=== PATIENT | male | born 1995 | race Caucasian/White ===

== ENCOUNTER 2019-11-15 09:38 | Emergency (ER) | payer SELFPAY ==
--- NOTE | 2019-11-15 09:43 | ED.URI ---
HPI - URI/Sore Throat General Chief Complaint: Upper Respiratory Infection Stated Complaint: chest congestion/runny nose/cough Time Seen by Provider: 11/15/19 09:56 Source: patient and RN notes reviewed Mode of arrival: ambulatory Limitations: no limitations History of Present Illness HPI Narrative: 24 old male presents with concern for cough, chest wall soreness when coughing, head congestion, fever, body aches, runny nose, general malaise. Reports has been taking ibuprofen and NyQuil. Reports he was exposed to influenza. Reports symptoms started on Wednesday with sinus congestion, cough started Wednesday. MD elicited complaint: cough Related Data Allergies Allergy/AdvReac Type Severity Reaction Status Date / Time azithromycin Allergy Unknown HIVES Verified 11/15/19 09:45 Cat Dander Allergy Mild Sneezing Uncoded 11/15/19 09:58 Review of Systems Review of Systems: Narrative: CONSTITUTIONAL: Reports malaise, chills, sweats, fever. EYES: Denies visual changes, redness, or discharge. ENT: Reports rhinorrhea, congestion. Denies sinus pain, otalgia and sore throat. CARDIOVASCULAR: Denies chest pain, palpitations, or edema. RESPIRATORY: Reports cough, chest congestion, chest pain with coughing. Denies dyspnea. GASTROINTESTINAL: Denies abdominal pain, nausea, vomiting, diarrhea SKIN: Denies rash or itching. MUSCULOSKELETAL: Reports myalgia. NEUROLOGIC: Reports headache. All systems reviewed & are unremarkable except as noted in HPI and below PMFSH Social History Social History Gender identity (if verbalized by the patient): Male Comments At time of signature, agree with nursing past medical, surgical, social and family history. There is no relevant family history pertinent to the presenting complaint Exam Narrative: Exam Narrative: GENERAL: Well-appearing, well-nourished, and in no acute distress. HEAD: Normocephalic EYES: PERRLA, conjunctivae clear ENT: Nares clear, turbinates edematous and erythematous, clear discharge. Mucous membranes moist. TM pearly medina with sharp light reflex bilaterally; no tragal tenderness. Oropharynx not erythematous without lesions. Tonsils not enlarged and without exudate, no drooling, no hoarseness, no trismus. NECK: Supple. No lymphadenopathy CHEST: Clear to auscultation, breath sounds equal. No wheezing, rhonchi, rales, or stridor. No respiratory distress, speaks in full sentences. Cough noted HEART: Regular rate and rhythm. No murmur heard. Normal peripheral pulses. SKIN: Warm, dry, no rash. NEURO: Alert and oriented x3. PSYCH: Normal mood and affect Course Course Emergency Course: Patient is aware of diagnosis, understands and agrees to treatment plan. Anticipatory guidance given. Patient agrees to follow-up as directed and is aware of reasons to seek care at the emergency department. Portions of this record may have been created with voice recognition software Vital Signs Vital signs: Vital Signs Temperature 99.0 F 11/15/19 09:52 Pulse Rate 109 H 11/15/19 09:52 Respiratory Rate 16 11/15/19 09:52 Blood Pressure 145/73 H 11/15/19 09:52 Pulse Oximetry 98 11/15/19 09:52 Temperature 99.0 F 11/15/19 09:52 Pulse Rate 109 H 11/15/19 09:52 Respiratory Rate 16 11/15/19 09:52 Blood Pressure 145/73 H 11/15/19 09:52 Pulse Oximetry 98 11/15/19 09:52 Reviewed. MDM - URI/Sore Throat MDM Narrative Medical decision making narrative: Differential diagnosis considered: Strep pharyngitis, allergic rhinitis, upper respiratory tract infection, sinusitis, rhinosinusitis, nasopharyngitis. viral pharyngitis, otitis media, otitis externa, pneumonia, bronchitis, viral cough syndrome, viral syndrome, and influenza. Exam findings show no acute concerns or changes; patient is non-toxic appearing and is in no distress. Patient is appropriate for outpatient treatment and follow-up. Lab Data Attestation: I reviewed the patient's lab results. Labs: Influenza A Screen Ne
[2019-11-15 09:52] VITALS: BP 145/73; PULSE 109; RESP 16; TEMP 37.2; O2SAT 98
== END 2019-11-15 10:13 | disposition home or self-care (01) ==
PROVIDERS: Emergency Provider Nurse Practitioner
DX: J10.1 Influenza due to other identified influenza virus with other respiratory manifestations (principal)
CPT/HCPCS: 87804; 99213; G0463

== ENCOUNTER 2021-04-04 23:40 | Emergency (ER) | payer OTHER, SELFPAY ==
--- NOTE | 2021-04-04 23:45 | PC.NURSE ---
Bebeto (friend) wants any updates on pt. [phone]
[2021-04-04 23:53] VITALS: BP 148/90; PULSE 102; RESP 16; TEMP 36.9; O2SAT 97
[2021-04-04 23:59] VITALS: BP 129/92; PULSE 106; RESP 35; O2SAT 94
[2021-04-05 00:02] VITALS: BP 124/74; PULSE 107; RESP 28; O2SAT 93
--- NOTE | 2021-04-05 00:05 | PC.NURSE ---
MARIAELENA Botello from [facility]ison Control notified of ingestion. States peak is 1-4 hours, look for [employer] depression and mild hypotension. Based on kg, pt should be able to tolerate reported ingestion. Po[facility] Control to fax over information on care.
[2021-04-05 00:14] VITALS: RESP 21
[2021-04-05 00:15] VITALS: PULSE 104; RESP 17; O2SAT 95
--- NOTE | 2021-04-05 00:15 | ED.GENADULT ---
HPI - General Adult General Chief complaint: Overdose Stated complaint: needs stomach pumped Time Seen by Provider: 04/05/21 00:02 History of Present Illness HPI narrative: Patient 25-year-old gentleman who presents the emergency department with chief complaint of overdose. Patient reports tonight he was trying to get high and took some benzodiazepines plus alcohol. The patient states he is not suicidal not homicidal and reports that he was brought here because his friend thought he needed his stomach pumped. Patient reports that he is not drowsy reports that he would like to go home now. Related Data Allergies Allergy/AdvReac Type Severity Reaction Status Date / Time azithromycin Allergy Unknown HIVES Verified 11/15/19 09:45 Cat Dander Allergy Mild Sneezing Uncoded 11/15/19 09:58 Review of Systems Review of Systems: Narrative: A 10 system review of systems was completed on the patient and is negative except for what is stated in the HPI. Nursing and ancillary documentation was reviewed. [facility] Social History Social History Substance use type: marijuana Gender identity (if verbalized by the patient): Male Exam Narrative: Exam Narrative: GENERAL: Well-appearing, well-nourished, and in no acute distress. HEAD: Normocephalic, atraumatic. EYES: PERRLA and EOMI. ENT: Nares clear, no rhinorrhea or epistaxis. Mucous membranes moist. NECK: Supple. CHEST: Clear to auscultation. No respiratory distress. HEART: Regular rate and rhythm. No murmur heard. Normal peripheral pulses. ABDOMEN: Soft, nontender, nondistended, normal active bowel sounds. EXTREMITIES: Normal range of motion. No edema. SKIN: Warm, dry, no rash. NEURO: No focal deficits. Alert and oriented x3. PSYCH: Normal mood and affect. Course Vital Signs Vital signs: Vital Signs Temperature 36.9 C 04/04/21 23:53 Pulse Rate 102 H 04/04/21 23:53 Respiratory Rate 16 04/04/21 23:53 Blood Pressure 148/90 H 04/04/21 23:53 Pulse Oximetry 97 04/04/21 23:53 Temperature 36.9 C 04/04/21 23:53 Pulse Rate 69 04/05/21 05:58 Respiratory Rate 16 04/05/21 05:58 Blood Pressure 115/62 04/05/21 05:58 Pulse Oximetry 94 04/05/21 05:58 Medical Decision Making Vital Signs Vital Signs: Vital Signs Temperature 36.9 C 04/04/21 23:53 Pulse Rate 102 H 04/04/21 23:53 Respiratory Rate 16 04/04/21 23:53 Blood Pressure 148/90 H 04/04/21 23:53 Pulse Oximetry 97 04/04/21 23:53 Temperature 36.9 C 04/04/21 23:53 Pulse Rate 69 04/05/21 05:58 Respiratory Rate 16 04/05/21 05:58 Blood Pressure 115/62 04/05/21 05:58 Pulse Oximetry 94 04/05/21 05:58 Lab Data Result diagrams: 04/05/21 01:30 04/05/21 01:30 Labs: Lab Results 04/05/21 04/05/21 04/05/21 Range/Units 01:30 01:30 01:30 WBC 11.2 H (4.5-10.0) K/mm3 RBC 5.33 (4.6-6.20) M/mm3 Hgb 17.0 (14.0-18.0) g/dL Hct 49.3 (42.0-52.0) % MCV 92.5 (80-100) fl MCH 31.9 (26-34) pg MCHC 34.5 (32-36) g/dl RDW 12.7 (11.5-14.5) % Plt Count 195 (150-375) k/mm3 MPV 11.4 H (7.4-10.4) fl Immature Gran % (Auto) 0.6 H (0-0.5) % Neut % (Auto) 65.6 (45.5-73.1) % Lymph % (Auto) 27.9 (18.3-44.2) % [place] % (Auto) 3.9 (2.6-8.5) % Eos % (Auto) 1.3 (0-4.4) % Baso % (Auto) 0.7 (0.2-1.2) % Lymph # (Auto) 3.12 (0.9-3.2) K/mm3 [place] # (Auto) 0.4 (0.1-0.6) K/mm3 Eos # (Auto) 0.1 (0-0.3) K/mm3 Baso # (Auto) 0.1 (0.0-0.1) K/mm3 Abs Immat Gran (auto) 0.07 H (0.00-0.031) K/mm3 Absolute Neuts (auto) 7.3 H (1.3-6.7) K/mm3 Absolute Nucleated RBC 0.0 (0.0-0.012) K/mm3 Nucleated RBC % 0.0 (0.0-0.2) % Sodium (137-145) mmol/L Potassium (3.4-5.0) mmol/L Chloride (98-107) mmol/L Carbon Dioxide (22-30) mmol/L Anion Gap (8-16) mmol/L BUN (9-20) mg/dL Creatinine
--- NOTE | 2021-04-05 01:00 | PC.NURSE ---
Pt refusing vital signs at this time.
--- NOTE | 2021-04-05 01:04 | PC.NURSE ---
2 unsuccessful attempts made to contact Owen (pt contacts) by RN for a ride home for pt.
--- NOTE | 2021-04-05 01:10 | ECG_ITS ---
Measurements Intervals [place] Rate: 87 P: 48 LA: 163 QRS: 48 QRSD: 94 T: 28 QT: 341 QTc: 412 Interpretive Statements SINUS RHYTHM MINIMAL Q WAVES- INFERIOR LEADS BORDERLINE ECG Electronically Signed On 04-05-2021 7:13:18 CDT by Trace Ring D.O.
--- NOTE | 2021-04-05 01:30 | PC.NURSE ---
Pt refusing athletic monitor. Pt showing signs of agitation towards staff.
[2021-04-05 01:47] LABS: Basophils Absolute Auto 0.1 K/mm3 (0.0-0.1); Basophils Percent Auto 0.7 % (0.2-1.2); Eosinophils Absolute Auto 0.1 K/mm3 (0-0.3); Eosinophils Percent Auto 1.3 % (0-4.4); Hematocrit 49.3 % (42.0-52.0); Immature Granulocyte Absolute 0.07 K/mm3 (0.00-0.031); Immature Granulocyte Percent A 0.6 % (0-0.5); Lymphocytes Absolute Auto 3.12 K/mm3 (0.9-3.2); Lymphocytes Percent Auto 27.9 % (18.3-44.2); Mean Corpuscular HGB Conc 34.5 g/dl (32-36); Mean Corpuscular Hemoglobin 31.9 pg (26-34); Mean Corpuscular Volume 92.5 fl (80-100); Mean Platelet Volume 11.4 fl (7.4-10.4); Monocytes Absolute Auto 0.4 K/mm3 (0.1-0.6); Monocytes Percent Auto 3.9 % (2.6-8.5); Neutrophils Absolute Auto 7.3 K/mm3 (1.3-6.7); Neutrophils Percent Auto 65.6 % (45.5-73.1); Platelet Count Result 195 k/mm3 (150-375); Red Blood Count 5.33 M/mm3 (4.6-6.20); Red Cell Distribution Width 12.7 % (11.5-14.5); White Blood Count 11.2 K/mm3 (4.5-10.0)
[2021-04-05 01:52] LABS: Acetaminophen < 10 ug/mL (10-30); Ethanol 150 mg/dL (<10); Salicylate < 1.0 mg/dL (2-20)
[2021-04-05 01:53] LABS: Alanine Aminotransferase 35 U/L (4-50); Albumin Level 4.8 g/dL (3.5-5.1); Alkaline Phosphatase 57 U/L (38-126); Anion Gap 11 mmol/L (8-16); Aspartate Amino Transferase 55 U/L (17-59); Bilirubin,Total 0.6 mg/dL (0.2-1.3); Blood Urea Nitrogen 9 mg/dL (9-20); Calcium 8.9 mg/dL (8.4-10.2); Carbon Dioxide 22 mmol/L (22-30); Chloride 109 mmol/L (98-107); Estimated CRCL calculation 133 ml/min; Estimated Glomerular Filt Rate > 60; Glucose 100 mg/dL (65-110); Potassium 4.3 mmol/L (3.4-5.0); Sodium 142 mmol/L (137-145)
--- NOTE | 2021-04-05 01:53 | PC.NURSE ---
Pt requesting no updates be shared with family at this time.
[2021-04-05 01:55] LABS: Add Urine Microscopic? YES; Appearance Urine Clear (Clear); Bilirubin Urine Negative (Negative); Blood Urine Negative (Negative); Color Urine Yellow (Yellow); Glucose Urine UA Negative (Negative); Ketones Urine Negative (Negative); Leukocyte Esterase Ur Negative LEU/UL (Negative); Mucus Urine Rare /lpf; Nitrate Urine Negative (Negative); Protein Urine 1+ mg/dL (Negative); Specific Grav Ur 1.012 (1.001-1.035); Squamous Epithelial Cell Urine Rare /hpf (Few); Urobilinogen Urine Negative mg/dL (<2.0); WBC Urine 0-3 /hpf
[2021-04-05 02:03] LABS: Amphetamine Screen Urine Negative (Negative); Barbiturate Screen Urine Negative (Negative); Benzodiazepines Screen Urine Negative (Negative); Cannabinoid Screen Urine Positive (Negative); Cocaine Screen Urine Negative (Negative); Methadone Screen Urine Negative (Negative); Opiate Screen Urine Negative (Negative); Phencyclidine Screen Urine Negative (Negative)
--- NOTE | 2021-04-05 02:31 | PC.NURSE ---
Spoke with Manju with Poison Control. They are closing his case at this time.
--- NOTE | 2021-04-05 02:40 | PC.NURSE ---
pt seen walking towards the charge desk stating can i have an escort to go smoke my cigarette? this rn heard mar rn state no you cannot. please go back to your room. this rn heard pt yell okay, peach! okay, peach! you must be SO fun at parties. pt ambulated back to room 10 w/ no difficulties.
--- NOTE | 2021-04-05 05:51 | PC.NURSE ---
Pt continues to refuse vitals at this time.
[2021-04-05 05:58] VITALS: BP 115/62; PULSE 69; RESP 16; O2SAT 94
[2021-04-05 06:22] LABS: Ethanol 77 mg/dL (<10)
[2021-04-05 06:45] VITALS: BP 114/80; PULSE 77; RESP 16; O2SAT 95
== END 2021-04-05 06:46 | disposition home or self-care (01) ==
PROVIDERS: Emergency Provider Emergency Medicine
DX: T42.4X1A Poisoning by benzodiazepines, accidental (unintentional), initial encounter (principal); T51.91XA Toxic effect of unspecified alcohol, accidental (unintentional), initial encounter; R94.31 Abnormal electrocardiogram [ECG] [EKG]
CPT/HCPCS: 36415; 80053; 80307; 81001; 84443; 85025; 93005; 95863; 99283

== ENCOUNTER 2024-01-30 15:11 | Emergency (ER) | payer SELFPAY ==
[2024-01-30 15:29] VITALS: BP 128/73; PULSE 72; RESP 16; TEMP 37; O2SAT 98
--- NOTE | 2024-01-30 16:10 | ED.GENADULT ---
HPI - General Adult General Chief complaint: Dental/Oral Stated complaint: dental pain Source: patient Mode of arrival: ambulatory Limitations: no limitations History of Present Illness HPI narrative: Patient presents for evaluation of right lower dental pain. Symptom onset yesterday. He indicates he has a known dental fracture in the area that has been present for over a year. States he has been scared to go see a dentist. Denies any fever, chills, nausea, vomiting. He rates his pain as 8/10 in severity. He has not taken any medication to assist with the symptoms. He is a current every day smoker. Related Data Allergies Allergy/AdvReac Type Severity Reaction Status Date / Time azithromycin Allergy Unknown HIVES Verified 01/30/24 15:37 Cat Dander Allergy Mild Sneezing Uncoded 01/30/24 15:37 Review of Systems Review of Systems: CONSTITUTIONAL: Denies fever, chills, or sweats. EYES: Denies visual changes, redness, or discharge. ENT: Reports right lower dental pain. Denies rhinorrhea, congestion, sore throat, or otalgia. CARDIOVASCULAR: Denies chest pain, palpitations, or edema. RESPIRATORY: Denies cough or dyspnea. GASTROINTESTINAL: Denies abdominal pain, nausea, vomiting, or diarrhea. GENITOURINARY: Denies dysuria or hematuria. SKIN: Denies rash or itching. MUSCULOSKELETAL: Denies back pain, joint pain, or myalgia. NEUROLOGIC: Denies headache, numbness, dizziness, or weakness. PSYCHIATRIC: Denies anxiety or depression. [facility] Past Medical History Medical History No pertinent past medical history Surgical History Surgical History No pertinent past surgical history Family History Family History Mother Family history non-contributory Social History Social History Smoking status: Current every day smoker Tobacco type: cigarettes Substance use: current Substance use type: marijuana Gender identity (if verbalized by the patient): Male Spiritual care concerns: No Exam Narrative: GENERAL: Well-appearing, well-nourished, and in no acute distress. HEAD: Normocephalic, atraumatic. EYES: PERRLA and EOMI. ENT: Nares clear, no rhinorrhea or epistaxis. Mucous membranes moist. Oropharynx without tonsillar hypertrophy exudate or other lesions. Tooth #31 is fractured. There is no visible or palpable abscess. Bilateral TMs pearly medina nonbulging NECK: Supple. No adenopathy or masses. No carotid bruits or JVD CHEST: Clear to auscultation. No respiratory distress. No wheezes rales or rhonchi HEART: Regular rate and rhythm. No murmur heard. Normal peripheral pulses. ABDOMEN: Soft, nontender, nondistended, normal active bowel sounds. EXTREMITIES: Normal range of motion. No edema. SKIN: Warm, dry, no rash. NEURO: No focal deficits. Alert and oriented x3. PSYCH: Normal mood and affect. Course Course Emergency Course: This is a 28-year-old male who presented for evaluation of right lower dental pain. He has a known dental fracture which corresponds with tooth #31. Will discharge with prescriptions for ibuprofen and penicillin. Will contact dentist tomorrow for an appointment. Advised not to smoke. Go to the emergency department for worsening of the condition or intractable pain. Pt in agreement with plan of care. Level of Care: Express Care Visit Vital Signs Vital signs: Vital Signs Temperature 37.0 C 01/30/24 15:29 Pulse Rate 72 01/30/24 15:29 Respiratory Rate 16 01/30/24 15:29 Blood Pressure 128/73 01/30/24 15:29 Pulse Oximetry 98 01/30/24 15:29 Oxygen Delivery Room Air 01/30/24 15:29 Temperature 37.0 C 01/30/24 15:29 Pulse Rate 72 01/30/24 15:29 Respiratory Rate 16 01/30/24 15:29 Blood Pressure 128/73
== END 2024-01-30 16:15 | disposition home or self-care (01) ==
PROVIDERS: Emergency Provider Nurse Practitioner; PCP Registered Nurse
DX: S02.5XXA Fracture of tooth (traumatic), initial encounter for closed fracture (principal); X58.XXXA Exposure to other specified factors, initial encounter; F17.210 Nicotine dependence, cigarettes, uncomplicated; F12.90 Cannabis use, unspecified, uncomplicated
CPT/HCPCS: 99213; G0463

== ENCOUNTER 2024-03-17 14:59 | Emergency (ER) | payer SELFPAY ==
[2024-03-17 15:06] VITALS: BP 139/87; PULSE 86; RESP 16; TEMP 36.3; O2SAT 99
--- NOTE | 2024-03-17 15:27 | ED.DENTAL ---
HPI - Dental/Oral General Chief complaint: Dental/Oral Stated complaint: bottom right tooth pain Time Seen by Provider: 03/17/24 15:15 Source: patient Mode of arrival: ambulatory Limitations: no limitations History of Present Illness HPI Narrative: 28-year-old male presents with right lower dental pain. Patient reports he has broken tooth. Was seen here approximately 1 month ago for same complaint. Was given penicillin. Patient states he thinks he needs another antibiotic. Does not have a dentist or dental insurance. All systems reviewed and negative except as noted above. Related Data Allergies Allergy/AdvReac Type Severity Reaction Status Date / Time azithromycin Allergy Intermediate HIVES Verified 03/17/24 15:13 Cat Dander Allergy Mild Sneezing Uncoded 03/17/24 15:05 Review of Systems Review of Systems: CONSTITUTIONAL: Denies fever, chills, or sweats. EYES: Denies visual changes, redness, or discharge. ENT: Denies rhinorrhea, congestion, sore throat, or otalgia. Reports right lower dental pain. CARDIOVASCULAR: Denies chest pain, palpitations, or edema. RESPIRATORY: Denies cough or dyspnea. GASTROINTESTINAL: Denies abdominal pain, nausea, vomiting, or diarrhea. GENITOURINARY: Denies dysuria or hematuria. SKIN: Denies rash or itching. MUSCULOSKELETAL: Denies back pain, joint pain, or myalgia. NEUROLOGIC: Denies headache, numbness, or weakness. PSYCHIATRIC: Denies anxiety or depression. All other systems reviewed are negative, except as documented in HPI. [facility] Past Medical History Medical History (Updated 03/17/24 @ 15:23 by Myla Allen NP) No pertinent past medical history Surgical History Surgical History No pertinent past surgical history Family History Family History Mother Family history non-contributory Social History Social History Smoking status: Current every day smoker Tobacco type: cigarettes Substance use: current Substance use type: marijuana Gender identity (if verbalized by the patient): Male Spiritual care concerns: No Comments At time of signature, agree with nursing past medical, surgical, social and family history. There is no relevant family history pertinent to the presenting complaint. Exam Narrative: GENERAL: This is a well-nourished, well-developed patient, in no apparent distress. HEAD: normocephalic, atraumatic. EYES: PERRL. Sclera clear/white. Vision is grossly intact. EARS: External ears normal NOSE: External nose normal MOUTH: TOOTH #30 BROKEN AND DECAYED NECK: Neck supple, non-tender without lymphadenopathy, masses or thyromegaly. CARDIOVASCULAR: Regular rate and rhythm without murmurs, gallops, or rubs. RESPIRATORY: Clear to auscultation. Breath sounds equal bilaterally. No wheezes, rales, or rhonchi. SKIN: warm, Dry, intact with no suspicious lesions or rash, good texture and turgor. NEURO: awake, alert, and oriented to person, place and time. There were no obvious focal neurologic abnormalities. EXTREMITIES: No joint tenderness, effusion, or edema noted. Course Course Level of Care: Express Care Visit Vital Signs Vital signs: Vital Signs Temperature 36.3 C L 03/17/24 15:06 Pulse Rate 86 03/17/24 15:06 Respiratory Rate 16 03/17/24 15:06 Blood Pressure 139/87 03/17/24 15:06 Pulse Oximetry 99 03/17/24 15:06 Oxygen Delivery Room Air 03/17/24 15:06 Temperature 36.3 C L 03/17/24 15:06 Pulse Rate 86 03/17/24 15:06 Respiratory Rate 16 03/17/24 15:06 Blood Pressure 139/87 03/17/24 15:06 Pulse Oximetry 99 03/17/24 15:06 Oxygen Delivery Room Air 03/17/24 15:06 Reviewed MDM - Dental/Oral MDM Narrative Medical decision making narrative: Patient is aware of diagnosis, understands and agrees to ana
== END 2024-03-17 15:27 | disposition home or self-care (01) ==
PROVIDERS: Emergency Provider Nurse Practitioner Family; PCP Registered Nurse
DX: K04.7 Periapical abscess without sinus (principal); F17.210 Nicotine dependence, cigarettes, uncomplicated; F12.90 Cannabis use, unspecified, uncomplicated
CPT/HCPCS: 99213; G0463

== ENCOUNTER 2024-04-29 10:26 | Emergency (ER) | payer SELFPAY ==
--- NOTE | 2024-04-29 10:28 | ED.URI ---
HPI - URI/Sore Throat General Chief Complaint: Dental/Oral Stated Complaint: tooth pain right side Time Seen by Provider: 04/29/24 10:27 Source: patient Mode of arrival: ambulatory Limitations: no limitations History of Present Illness HPI Narrative: Efren is a 29-year-old male patient presenting to the clinic today with complaints of dental pain to the right lower side. He reports he was seen in the clinic cover weeks ago and got antibiotics for a dental infection. States that the antibiotics did help however he noticed yesterday that his tooth began to her and he developed swelling around the gums again. He is concerned because he has an appointment on Wednesday to get the tooth extracted. He denies any fever chills Related Data Allergies Allergy/AdvReac Type Severity Reaction Status Date / Time azithromycin Allergy Intermediate HIVES Verified 04/29/24 10:37 Cat Dander Allergy Mild Sneezing Uncoded 04/29/24 10:37 Review of Systems Review of Systems: Pertinent positives per HPI. Patient denies any fever, chills, rash, headache, visual changes, dizziness, cough, runny nose, sore throat, shortness of breath, chest pain, palpitations, nausea, vomiting, diarrhea, constipation, abdominal pain, or any urinary issues. PMFSH Past Medical History Medical History No pertinent past medical history Surgical History Surgical History No pertinent past surgical history Family History Family History Mother Family history non-contributory Social History Social History Smoking status: Current every day smoker Tobacco type: cigarettes Substance use: current Substance use type: marijuana Gender identity (if verbalized by the patient): Male Spiritual care concerns: No Comments At the time of my signature, I reviewed and agree with the nursing past medical, surgical, social, and family history. There is no relevant family history pertinent to the patient complaint. Exam Narrative: General: Well-developed, well nourished, in no apparent distress Head: Normocephalic, atraumatic Eyes: Pupils equally round and reactive to light bilaterally, EOM intact, sclera and conjunctive clear, no discharge, lids normal Ears: TMs intact and clear, ear canals clear, no drainage, grossly hearing normal. Nose: Nares patent, no discharge, no inflammation, no sinus tenderness. Mouth: Oropharynx without lesions or masses, poor dentition, MMM. Broken decayed tooth with localized redness and swelling -number 30 Neck: Supple, trachea midline, no enlargement of anterior or posterior cervical nodes, no thyroid masses or goiter palpable. Cardio: Regular rate and rhythm, s1 and s2 normal, no murmur appreciated. Resp: Clear to auscultation bilaterally anteriorly and posteriorly, no rhonchi, rales, wheezing or rubs Course Course Emergency Course: Portions of this record may have been created with voice recognition software. Level of Care: Express Care Visit Vital Signs Vital signs: Vital signs reviewed MDM - URI/Sore Throat MDM Narrative Medical decision making narrative: At the time of visit patient is resting comfortably on the exam table. Patient appears to be nontoxic. Plan: I suspect patient has a dental infection. Prescription for Augmentin and ibuprofen was sent to the pharmacy. Supportive measures were discussed with the patient and they voiced understanding discharge instructions and agrees to treatment plan. Return precautions reviewed Differential Diagnosis Differential diagnosis: Likely other (Dental infection, toothache, dental abscess) Discharge Plan Discharge Clinical Impression: Dental infection Patient Disposition: Home, Self-Care Condition: Stable Instructions:
[2024-04-29 10:34] VITALS: BP 141/76; PULSE 75; RESP 16; TEMP 36.9; O2SAT 99
== END 2024-04-29 10:53 | disposition home or self-care (01) ==
PROVIDERS: Emergency Provider Nurse Practitioner Family; PCP Registered Nurse
DX: K04.7 Periapical abscess without sinus (principal); F17.210 Nicotine dependence, cigarettes, uncomplicated; F12.90 Cannabis use, unspecified, uncomplicated
CPT/HCPCS: 99213; G0463

== ENCOUNTER 2025-04-14 08:58 | Emergency (ER) | payer SELFPAY ==
[2025-04-14 09:08] VITALS: BP 139/83; PULSE 89; RESP 16; TEMP 37.4; O2SAT 95
--- NOTE | 2025-04-14 09:12 | ED.DENTAL ---
HPI - Dental/Oral General Chief complaint: Dental/Oral Stated complaint: Dental Pain Time Seen by Provider: 04/14/25 09:16 Source: patient, RN notes reviewed and old records reviewed Mode of arrival: ambulatory Limitations: no limitations History of Present Illness HPI Narrative: 30-year-old male presents to the [facility] with left upper dental pain, fractured tooth. Patient states the pain started yesterday, will come a during the night. Has taken Tylenol No Facial swelling or erythema noted Treatment prior to arrival: other (Tylenol) Related Data Allergies Allergy/AdvReac Type Severity Reaction Status Date / Time azithromycin Allergy Intermediate HIVES Verified 04/14/25 09:04 Cat Dander Allergy Mild Sneezing Uncoded 04/14/25 09:04 Review of Systems Review of Systems: All systems reviewed & are unremarkable except as noted in HPI and below Constitutional: Constitutional: Reports no additional constitutional complaints ENT: Reports as per HPI and Reports dental pain (Left upper) PMFSH Past Medical History Medical History No pertinent past medical history Surgical History Surgical History No pertinent past surgical history Family History Family History Mother Family history non-contributory Social History Social History Smoking status: Current every day smoker Tobacco type: cigarettes Substance use: current Substance use type: marijuana Gender identity (if verbalized by the patient): Male Spiritual care concerns: No Comments At the time of my signature, I reviewed and agree with the nursing past medical, surgical, social, and family history. There is no relevant family history pertinent to the patient complaint. Exam Const: General: cooperative, healthy appearing, comfortable, no acute distress, well developed, alert and well nourished Nutritional Appearance: well nourished Orientation/consciousness: patient oriented x3 Limitations: no limitations HENMT: Head: normal to inspection Ears: hearing grossly normal bilaterally, external ears normal, TM normal on the right, EAC's normal, mastoids normal and no periauricular adenopathy Mouth: Yes Normal oral and palatal mucosa present, Yes lip normal, Yes tongue normal and Yes moist mucous membranes Teeth and gingiva: caries, fair dentition and other (3rd molar upper posterior left side fracture) Eyes: General: appearance normal, both eyes and all related structures Alignment and Position: alignment normal Neck: Neck: normal visual inspection, full ROM, no lymphadenopathy and no meningeal signs Chest: Chest palpation & inspection: normal inspection of the chest Resp: Effort & Inspection: normal respiratory effort and able to speak in complete sentences Auscultation: clear to auscultation bilaterally, no crackles, no rales, no rhonchi and no wheezes Cardio: Rate: regular rate Skin: General skin exam: normal color and no rashes or lesions noted Neuro: General: patient oriented x3, gait normal, moves all extremities and no meningeal signs Cognition (Neuro): normal cognition Speech: normal speech Gait exam (Neuro): Normal gait present Extrem: General: normal to inspection, full ROM, capillary refill normal and normal gait Psych: Appearance: grossly normal and well kempt Mental Status: mental status grossly normal Speech and movement: Normal speech and movement present and Clear speech present Affect: normal affect Attitude: cooperative Course Course Level of Care: Express Care Visit Vital Signs Vital signs: Vital Signs Temperature 99.3 F 04/14/25 09:08 Pulse Rate 89 04/14/25 09:08 Respiratory Rate 16 04/14/25 09:08 Blood Pressure 139/83 04/14/25 09:08 Pulse Oximetry 95 04/14/25 09:08 Oxygen Delivery Room Air 04/14/25 09:08 Temperature 99.3 F 04/14/25 09:08 Pulse Rate 89 04/14/25 09:08 Respiratory Rate 16 04/14/25 09:08 Blood Pressure 139/83 04/14/25 09:08 Pulse Oximetry 95 04/14/25 09:08 Oxygen Delivery Room Air 04/14/25 09:08 Reviewed MDM - Dental/Oral MDM Narrative Medical decision making narrative: Patient sitting in exam room. Patient presents with dental pain to the upper. History of fracture tooth. History of dental abscesses. Patient appropriate for outpatient treatment close Discharge instructions reviewed with patient, as well as provided in writing per nursing staff. The instructions also include specific and strict return/GO TO THE ER as well as f/u information. All questions have been answered, and the patient deny any further questions with discharge and discharge plan. Some parts of this dictation were generated by voice recognition software and may contain typographical and/or grammatical inaccuracies. Differential Diagnosis Differential diagnosis: Likely gingival abscess, dental caries, toothache, dental abscess and fracture of tooth Critical Care Time Critical Care Time Critical Care Time: No Discharge Plan Discharge Clinical Impression: Toothache Fracture of tooth Qualifiers: Encounter type: initial encounter Patient Disposition: Home Condition: Stable Instructions: Antibiotic Form, Acute Dental Trauma (ED), Toothache (ED) Additional Instructions: Finish the entire course of antibiotics Pressure teeth twice a day and use a good mouthwash After every time you eat be sure to use salt water rinses. Apply ice to face to help with pain. Take Tylenol 650 mg alternating with Motrin 600 mg as needed for pain. You can alternate every 4 hours You need to follow-up with a dental provider as soon as possible for further evaluation and treatment. A list of dental providers has been given to you Follow up with a Primary Care Provider (PCP) about medical needs. A PCP can help keep you healthy by preventive medicine and screening. Go to the ER for New or worsening symptoms. Patient Language: Estonian Prescriptions: New penicillin V potassium 500 mg tablet 500 mg PO Q6H 10 Days Qty: 40 0RF ibuprofen 600 mg tablet 600 mg PO TID PRN (Reason: fever or pain) Qty: 30 0RF Follow-up/Referrals: Victoria,RINA Renee [Primary Care Provider] - 1 Week (express care follow up ) Time of Disposition: 09:21
== END 2025-04-14 09:25 | disposition home or self-care (01) ==
PROVIDERS: Emergency Provider Nurse Practitioner; PCP Registered Nurse
DX: S02.5XXA Fracture of tooth (traumatic), initial encounter for closed fracture (principal); X58.XXXA Exposure to other specified factors, initial encounter; F17.210 Nicotine dependence, cigarettes, uncomplicated; F12.90 Cannabis use, unspecified, uncomplicated
CPT/HCPCS: 99213; G0463